=== PATIENT | female | born 1995 | race Caucasian/White ===

== ENCOUNTER 2016-12-08 05:58 | Inpatient (IN) | payer OTHER ==
[2016-12-03 12:45] VITALS: BMI 31.8
--- NOTE | 2016-12-05 12:25 | P.HPOB ---
History of Present Illness H&P Date: 12/05/16 Chief Complaint: Patient is presenting for primary secondary to macrosomia This patient is a pleasant 21-year-old 2 para 0 female estimated date of confinement 12/14/2016 estimated gestational age 39 and one sevenths weeks who presents to labor and delivery requesting primary section secondary to concern for macrosomia. Patient most recently had an ultrasound which showed the weight to be greater than the 90th percentile however the head was measuring "off the scales". I discussed in detail with the patient and her partner about the relative inaccuracy of ultrasounds at this point in her gestation in regards to weight. Patient and her partner both apparently were macrosomic in her mother had a section for similar reasons. I discussed options with the patient including trial of labor, induction at 39 weeks, or primary section. Patient contacted my office and requested primary section. I did discuss the risk and benefits of both with the patient. I feel this is appropriate at this time. Review of Systems Constitutional: Denies chills, Denies fever Ears, nose, mouth and throat: Denies headache, Denies sore throat Cardiovascular: Denies chest pain, Denies shortness of breath Respiratory: Denies cough Gastrointestinal: Reports heartburn Genitourinary: Reports Menstruation: Reports amenorrhea Musculoskeletal: Denies myalgias Integumentary: Denies pruritus, Denies rash Neurological: Denies numbness, Denies weakness Psychiatric: Denies anxiety, Denies depression Endocrine: Denies fatigue, Denies weight change Past Medical History Past Medical History: No Reported History History of Any Multi-Drug Resistant Organisms: None Reported Past Surgical History: Orthopedic Surgery, Tonsillectomy Additional Past Surgical History / Comment(s): left knee, patient had a D&C for a spontaneous . Past Anesthesia/Blood Transfusion Reactions: Motion Sickness, Postoperative Nausea & Vomiting (PONV) Past Psychological History: No Psychological Hx Reported Smoking Status: Never smoker Past Alcohol Use History: None Reported Past Drug Use History: None Reported - Past Family History Mother Family Medical History: Cancer Additional Family Medical History / Comment(s): BREAST CANCER Medications and Allergies Home Medications Medication Instructions Recorded Confirmed Type Pnv with Ca,No.72/Iron/FA 1 each PO DAILY 12/03/16 12/03/16 History [ Plus Tablet] Allergies Allergy/AdvReac Type Severity Reaction Status Date / Time morphine Allergy Rash/Hives Verified 12/03/16 12:33 Exam - OBG Physical Exam Abdomen: bowel sounds normal, no diffuse tenderness, no bruit present, no guarding noted, no hepatomegaly, no splenomegaly, no mass Vulva: both: normal Vagina: normal moisture, no discharge Cervix: Cervix is closed and thick, uneffaced. Uterus: Fundal height is 40 cm. Uterus: enlarged Results blood work shows she is oh positive, rubella immune, RPR nonreactive, HIV nonreactive, hepatitis B negative, Glucola was normal, group B strep was negative, ultrasounds done on the showed estimated weight to be 7 lbs. 12 oz. (greater than the 90th percentile), however per the report the head circumferences "off the charts" and this weight may be unreliable. Assessment and Plan (1) Third trimester Narrative/Plan: This is a pleasant 21-year-old 2 para 0 female 39 and one sevenths weeks with suspected macrosomia, more specifically with a large head with the patient requesting primary section. Patient and I and her family have discussed this in detail including the benefits and risks. We also discussed the relative inaccuracy of ultrasound at this point in her in regard to estimated weight. Certainly she understands this may not be macrosomic, however based on the information that we have and her family history a primary is not unreasonable. She understands the risks of infection, bleeding, possible injury to bowel, bladder, vessels, and/or other organs. She understands the risk of DVT and pulmonary embolism. All the patient's questions are answered and a written consent is obtained. Status: Acute (2) macrosomia during in third trimester Status: Acute (3) Delivery by elective section Status: Acute
[2016-12-08] MEDS ORDERED: CITRIC ACID-SODIUM CITRATE 15 ML CUP PO ONE (06:14)
[2016-12-08] MEDS ORDERED: LACTATED RINGERS 1,000 ML IV SCH (06:14)
[2016-12-08] MEDS ORDERED: LACTATED RINGERS 1,000 ML IV ONE (06:14)
[2016-12-08 06:26] LABS: Basophils % (A) 0 %; CH 31.7; CHCM 34.5; Eosinophils # (A) 0.2 k/uL (0-0.7); Eosinophils % (A) 2 %; HCT 36.4 % (34.0-46.0); HDW 3.16; HGB 12.2 gm/dL (11.4-16.0); Luc # (Auto) 0.26; Luc % (Auto) 3; Lymphocytes # (A) 1.8 k/uL (1.0-4.8); Lymphocytes % (A) 18 %; MCH 31.1 pg (25.0-35.0); MCHC 33.6 g/dL (31.0-37.0); MCV 92.6 fL (80.0-100.0); Mean Platelet Volume 6.9; Monocytes # (A) 0.6 k/uL (0-1.0); Monocytes % (A) 6 %; Neutrophils % (A) 71 %; RBC 3.94 m/uL (3.80-5.40); RDW 14.2 % (11.5-15.5); WBC 9.9 k/uL (3.8-10.6); WBC (Perox) 10.21
[2016-12-08] MEDS ORDERED: ceFAZolin 2 GM in SODIUM CHLORIDE 0.9% 100 ML IVPB ONE (07:15)
[2016-12-08] MEDS ORDERED: KETAMINE 10 MG/ML 20 ML VIAL ONE (07:50)
[2016-12-08] MEDS ORDERED: MORPHINE SULFATE (PF) 0.3 MG/0.3 ML SYR ONE (07:50)
[2016-12-08] MEDS ORDERED: PROPOFOL 10 MG/ML 20 ML VIAL IV ONE (07:50)
[2016-12-08] MEDS ORDERED: fentaNYL (PF) 50 MCG/ML 2 ML AMP ONE (07:50)
[2016-12-08] MEDS ORDERED: OXYTOCIN 10 UNIT/ML 1 ML VIAL IM ONE (07:50)
[2016-12-08] MEDS ORDERED: KETOROLAC 30 MG/ML 1 ML VIAL ONE (07:50)
[2016-12-08] MEDS ORDERED: PHENYLEPHRINE-0.9% NACL SYG 1 MG/10 ML SYRINGE ONE (07:50)
[2016-12-08] MEDS ORDERED: NALBUPHINE 10 MG/ML AMPUL ONE (07:50)
[2016-12-08] MEDS ORDERED: NALBUPHINE 10 MG/ML AMPUL IV PRN (08:34)
[2016-12-08] MEDS ORDERED: diphenhydrAMINE 50 MG/ML 1 ML VIAL IVP PRN (08:34)
[2016-12-08] MEDS ORDERED: ONDANSETRON 4 MG/2 ML VIAL IVP PRN (08:34)
[2016-12-08] MEDS ORDERED: NALOXONE 0.4 MG/ML 1 ML VIAL IV PRN ×2 (08:34→08:40)
[2016-12-08] MEDS ORDERED: METOCLOPRAMIDE 5 MG/ML 2 ML VIAL IVP PRN (08:39)
[2016-12-08] MEDS ORDERED: ACETAMINOPHEN TAB 325 MG TAB PO PRN (08:39)
[2016-12-08] MEDS ORDERED: SIMETHICONE 80 MG CHEWABLE PO PRN (08:39)
[2016-12-08] MEDS ORDERED: diphenhydrAMINE 25 MG CAP PO PRN (08:39)
[2016-12-08] MEDS ORDERED: ZOLPIDEM 5 MG TAB PO PRN (08:39)
--- NOTE | 2016-12-08 08:48 | P.OP ---
Date of Procedure: 12/08/16 Preoperative Diagnosis: #1: 39-6/7 week . #2: Suspected macrosomia. #3: Patient requesting section Postoperative Diagnosis: #1: Same. 2: Nuchal cord 2. Procedure(s) Performed: Primary low transverse section Anesthesia: spinal Surgeon: Laith Aguilera Technical Laboratory Asst #1: Anel Capone Estimated Blood Loss (ml): 800 Pathology: other (Placenta) Condition: stable Disposition: floor Indications for Procedure: Please see dictated H&P for intimate details of this patient's admission. Brief summary this is a pleasant 21-year-old 2 para 0 female 39-6/7 weeks gestation who is admitted to labor and delivery for requested primary section due to concerns for macrosomia. Patient does understand the surgery and risks including risks of infection, bleeding, possible injury to bowel, bladder, vessels, and/or other organs. Patient understands the risk of DVT and pulmonary embolism. All the patient's questions are answered and a written consent is obtained. Operative Findings: This was a vigorous viable female infant Apgars 8 and 9 delivery time is 0815 hrs. Infant was straight occiput posterior presentation with a double nuchal cord. weight was 3620 g. Description of Procedure: This patient has a Garcia catheter placed to straight drain. She subsequently taken to the operating room where spinal anesthetic is administered. Patient's spinal anesthetic is adequate for surgery but is suboptimal. Patient has an abdominal prep and drape. Scalpels then taken and a skin incision is made Pfannenstiel. With this done a second scalpel is taken down the fascia the fascia scored with a knife. The fascial incision extended bilaterally using the Patrick scissors. Fascia is then dissected off the rectus muscles sharply. Rectus muscles are and the peritoneum was identified and entered sharply. Peritoneal incision extended superior and inferior without difficulty. Bladder blade is then placed. The bladder peritoneum was taken sharply off the lower uterine segment. Scalpels then taken and a low transverse uterine incision is then made. Using a hemostat I bluntly entered the uterine cavity and there is loss of a large amount of clear fluid. This incision is extended bluntly. The is found to be occiput posterior presentation. With fundal pressure the 's head is then guided through the incision and delivered. Mouth and nares are bulb suctioned and there is a double nuchal cord which is loose and reduced. With more fundal pressure we then delivery anterior posterior shoulder and rest this infant's body. This is a vigorous viable female infant Apgars are 8 and 9 delivery time was 0815 hours. After delivery of the the umbilical cord is doubly clamped and then cut. It appears to be trivascular. The placenta is then manually extracted intact. Uterus is then externalized. Uterine incision demarcated with Díaz clamps. Uterine incision then closed using 0 Vicryl running locked fashion 2 layers good hemostasis is noted. Bladder peritoneum was then reapproximated using a 3-0 Vicryl. Again good hemostasis is noted excess fluid is removed from the abdomen and pelvis. Uterus placed back into the abdomen. The parietal peritoneum was then closed using 0 Vicryl running fashion. Rectus muscles reapproximated in 0 Vicryl interrupted fashion. Fascia is then closed using 0 PDS. Fascial incision is intact and hemostatic. Subcutaneous tissues and closed using a 3-0 Vicryl. Skin is and closed using dottie. All counts are correct 3. There are no complications. Infant and mother are taken to the birthing suite in satisfactory condition.
[2016-12-08] MEDS: HYDROmorphone PCA 5 MG/25 ML SYRINGE IV PRN ×2 (10:09→21:14)
[2016-12-08] MEDS: diphenhydrAMINE 50 MG/ML 1 ML VIAL IVP PRN ×2 (11:25→17:39)
[2016-12-08] MEDS: LACTATED RINGERS 1,000 ML IV SCH (15:11)
[2016-12-08] MEDS: KETOROLAC 30 MG/ML 1 ML VIAL IVP PRN (20:18)
[2016-12-09] MEDS: SENNOSIDES-DOCUSATE SODIUM 1 EACH TAB PO SCH ×3 (04:35→21:11)
--- NOTE | 2016-12-09 06:22 | P.PNOBGPC ---
Subjective - Subjective Patient reports: Reports appetite normal, Reports voiding normally, Reports pain well controlled, Reports ambulating normally : doing well Objective - Vital Signs Latest vital signs: Vital Signs Temp Pulse Resp BP Pulse Ox 12/09/16 04:00 98.3 F 79 16 108/66 12/09/16 00:00 98.4 F 71 16 115/62 12/08/16 20:00 98.2 F 78 18 122/58 12/08/16 17:05 97 12/08/16 16:00 98.6 F 79 18 107/55 97 12/08/16 15:00 97 12/08/16 13:00 97 12/08/16 11:34 75 20 116/56 98 12/08/16 10:47 71 20 107/52 12/08/16 10:17 71 18 106/52 12/08/16 09:47 75 18 104/51 97 12/08/16 09:34 98 12/08/16 09:32 82 18 105/52 96 12/08/16 09:17 77 18 107/55 96 12/08/16 09:02 78 18 113/59 97 12/08/16 08:47 96.2 F L 77 20 120/55 100 Intake and Output 12/08/16 12/08/16 12/09/16 14:59 22:59 06:59 Intake Total 1000 Output Total 800 2300 Balance -800 -1300 Intake: IV 1000 Lactated Ringers 1,000 ml 1000 @ 125 mls/hr IV .Q8H ALEJANDRO Rx#:[id number] Output: Urine 2300 Uretheral (Garcia) 1300 Estimated Blood Loss 800 Other: # Voids 1 800 Weight 72.575 kg Patient Weight 12/09/16 06:59 Weight 72.575 kg - Exam Lungs: bilateral: normal Chest: Normal S1, Normal S2 Extremities: Present: normal Abdomen: Present: normal appearance, soft. Absent: distention, tenderness Incision: Present: normal, dry, intact Uterus: Present: normal, firm Assessment and Plan (1) Third trimester Narrative/Plan: Post operative day 1. Patient is resting without complaints. Vital signs are stable she's afebrile. Uterus is firm nontender, her incision is intact and dry. CBC is pending at time of this dictation. 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 Current Visit: Yes Status: Acute Code(s): Z33.1 - STATE, INCIDENTAL SNOMED Code(s): 99374472 (2) macrosomia during in third trimester Current Visit: Yes Status: Acute Code(s): O36.63X0 - MATERNAL CARE FOR EXCESS GROWTH, THIRD TRIMESTER, UNSP SNOMED Code(s): 474029068 (3) Delivery by elective section Current Visit: Yes Status: Acute Code(s): O82 - ENCOUNTER FOR DELIVERY WITHOUT INDICATION SNOMED Code(s): 398256153
[2016-12-09] MEDS: KETOROLAC 30 MG/ML 1 ML VIAL IVP PRN (06:42)
[2016-12-09] MEDS: Acetaminophen-Codeine 300-30mg TAB PO PRN ×3 (07:55→18:23)
[2016-12-09 08:37] LABS: Basophils % (A) 0 %; CH 31.4; CHCM 33.4; Eosinophils # (A) 0.1 k/uL (0-0.7); Eosinophils % (A) 1 %; HDW 3.07; HGB 11.9 gm/dL (11.4-16.0); Luc # (Auto) 0.24; Luc % (Auto) 3; Lymphocytes # (A) 1.5 k/uL (1.0-4.8); Lymphocytes % (A) 15 %; MCH 31.2 pg (25.0-35.0); MCHC 32.9 g/dL (31.0-37.0); MCV 94.7 fL (80.0-100.0); Monocytes # (A) 0.5 k/uL (0-1.0); Monocytes % (A) 5 %; Neutrophils # (A) 7.4 k/uL (1.3-7.7); Neutrophils % (A) 76 %; RBC 3.81 m/uL (3.80-5.40); RDW 14.2 % (11.5-15.5); WBC 9.7 k/uL (3.8-10.6); WBC (Perox) 10.53
[2016-12-09] MEDS: IBUPROFEN 600 MG TAB PO PRN ×3 (10:10→22:37)
--- NOTE | 2016-12-09 11:30 | P.PN ---
Progress Note - Text Date:[12/09] Time:[633] Patient is status post []. Patient seen this morning with VAS score of [10]. c/o of pruritus, c/o nausea/vomiting. Patient treated with Ultram for pain control, doing better today
[2016-12-09] MEDS: LACTATED RINGERS 1,000 ML IV SCH ×2 (20:38→20:39)
[2016-12-09] MEDS: OXYTOCIN 30 UNITS/500 ML NS 30 UNIT in SALINE 1 500ML.BAG IV SCH (20:40)
[2016-12-10] MEDS: Acetaminophen-Codeine 300-30mg TAB PO PRN ×5 (00:01→20:18)
--- NOTE | 2016-12-10 06:11 | P.PNOBGPC ---
Subjective - Subjective Patient reports: Reports appetite normal, Reports voiding normally, Reports pain well controlled, Reports ambulating normally : doing well Objective - Vital Signs Latest vital signs: Vital Signs Temp Pulse Resp BP Pulse Ox 12/10/16 00:00 98.5 F 68 18 101/61 97 12/09/16 16:00 98.4 F 73 16 115/64 12/09/16 08:00 99.0 F 90 16 125/71 - Exam Lungs: bilateral: normal Chest: Normal S1, Normal S2 Extremities: Present: normal Abdomen: Present: normal appearance, soft. Absent: distention, tenderness Incision: Present: normal, dry, intact Uterus: Present: normal, firm Assessment and Plan (1) Third trimester Narrative/Plan: Postoperative day #2. Patient is resting without complaints. Vital signs are stable and she is afebrile. Uterus is firm nontender and her incision is intact and dry. My impression this is a normal course. Plan is continue routine postoperative care most likely discharge home tomorrow. Current Visit: Yes Status: Acute Code(s): Z33.1 - STATE, INCIDENTAL SNOMED Code(s): 84383467 (2) macrosomia during in third trimester Current Visit: Yes Status: Acute Code(s): O36.63X0 - MATERNAL CARE FOR EXCESS GROWTH, THIRD TRIMESTER, UNSP SNOMED Code(s): 930502013 (3) Delivery by elective section Current Visit: Yes Status: Acute Code(s): O82 - ENCOUNTER FOR DELIVERY WITHOUT INDICATION SNOMED Code(s): 987906302
[2016-12-10] MEDS: SENNOSIDES-DOCUSATE SODIUM 1 EACH TAB PO SCH ×2 (08:59→20:17)
[2016-12-10] MEDS: IBUPROFEN 600 MG TAB PO PRN ×3 (09:00→22:40)
[2016-12-10] MEDS ORDERED: LACTATED RINGERS 1,000 ML IV SCH (17:00)
[2016-12-10] MEDS ORDERED: IV FLUID CONTINUATION 1,000 ML IV ONE ×2 (17:08)
--- NOTE | 2016-12-10 17:21 | P.PN ---
Progress Note - Text Anesthesia 1715. I was asked to see the patient this afternoon because of symptoms suggesting a post dural puncture headache. Patient had a section under spinal anesthesia 2 days ago, yesterday she developed some nuchal irritation, and today symptoms have progressed to those of a full-blown post dural puncture headache including nuchal rigidity, marked postural component, and photophobia requiring that the room lights be off. Patient is currently breast-feeding and the has limited time off so they have decided to go ahead with an epidural blood patch which I will perform this afternoon.
--- NOTE | 2016-12-10 17:54 | P.PCN ---
Date of Procedure: 12/10/16 (Begin 1726 End 1738) Preoperative Diagnosis: Post dural puncture headache Postoperative Diagnosis: Same Procedure(s) Performed: Epidural blood patch Anesthesia: local Surgeon: Laith Mari Estimated Blood Loss (ml): 0.01 IV fluids (ml): 150 Pathology: none sent Condition: stable Disposition: floor Indications for Procedure: Post dural puncture headache Operative Findings: Evidence of LP puncture site at L34 Description of Procedure: With the patient seated crosstable on the stretcher the skin over the L34 interspace and surrounding area was thoroughly prepped with a chlorhexidine prep sponge. Approximately 1/10 of a cc of 1% plain lidocaine was used to raise a skin wheal over the L3 4 interspace in the midline. A 20-gauge Touhy needle was then introduced through the skin wheal into the interspinous ligament. The epidural space was then entered using a loss of resistance technique and a pulser style syringe lubricated with normal saline. At this point 20 mL of sterilely drawn autologous blood was obtained from the patient and injected through the Touhy needle with almost complete resolution of the patient's symptoms. The patient tolerated the procedure without complaint and is discharged back to her room on mother baby.
[2016-12-10] MEDS: LACTATED RINGERS 1,000 ML IV SCH ×2 (18:14→20:21)
[2016-12-11] MEDS: LACTATED RINGERS 1,000 ML IV SCH ×3 (02:19→05:10)
[2016-12-11] MEDS: Acetaminophen-Codeine 300-30mg TAB PO PRN ×2 (05:08→16:18)
--- NOTE | 2016-12-11 05:56 | P.PNOBGPC ---
Subjective - Subjective Patient reports: Reports appetite normal, Reports voiding normally, Reports pain well controlled, Reports ambulating normally : doing well Objective - Vital Signs Latest vital signs: Vital Signs Temp Pulse Pulse Resp BP BP Pulse Ox 12/11/16 00:00 98 F 68 14 118/55 97 12/10/16 21:00 97.8 F 87 16 128/77 12/10/16 17:55 66 16 111/58 96 12/10/16 17:40 59 L 16 116/59 95 12/10/16 16:00 97.0 F L 78 18 115/59 12/10/16 08:00 97.8 F 85 16 115/66 Intake and Output 12/10/16 12/10/16 12/11/16 14:59 22:59 06:59 Intake Total 350 Balance 350 Intake: IV 350 Other: Voiding Method Toilet Toilet - Exam Lungs: bilateral: normal Chest: Normal S1, Normal S2 Extremities: Present: normal Abdomen: Present: normal appearance, soft. Absent: distention, tenderness Incision: Present: normal, dry, intact Uterus: Present: normal, firm Assessment and Plan (1) Third trimester Narrative/Plan: day #3. Patient had developed a headache history afternoon and anesthesia evaluated and felt was spinal in nature. Patient was taken to the operating room and had a epidural blood patch placed which did resolve her headache. She is resting this morning without new complaints. She does asked to stay today to concerns for recurrence of her headache. Vital signs are stable she is afebrile. Uterus is firm nontender and her incision is intact and dry. My impression is this is a normal postoperative course with a spinal headache which is now resolved status post blood patch. Plan today is continue routine postoperative care most likely discharge home tomorrow is patient changes her mind. Current Visit: Yes Status: Acute Code(s): Z33.1 - STATE, INCIDENTAL SNOMED Code(s): 37024491 (2) macrosomia during in third trimester Current Visit: Yes Status: Acute Code(s): O36.63X0 - MATERNAL CARE FOR EXCESS GROWTH, THIRD TRIMESTER, UNSP SNOMED Code(s): 176533434 (3) Delivery by elective section Current Visit: Yes Status: Acute Code(s): O82 - ENCOUNTER FOR DELIVERY WITHOUT INDICATION SNOMED Code(s): 689379932
--- NOTE | 2016-12-11 08:00 | P.PN ---
Progress Note - Text 0650 anesthesia. Vishnu lee is status post epidural blood patch for os dural puncture headache secondary to a spinal anesthetic for section on Thursday. She reports no headache this morning.
[2016-12-11] MEDS: SENNOSIDES-DOCUSATE SODIUM 1 EACH TAB PO SCH ×2 (09:21→19:53)
[2016-12-11] MEDS: IBUPROFEN 600 MG TAB PO PRN ×2 (09:21→19:07)
[2016-12-12] MEDS: Acetaminophen-Codeine 300-30mg TAB PO PRN ×2 (00:47→05:34)
[2016-12-12] MEDS: LACTATED RINGERS 1,000 ML IV SCH (02:57)
--- NOTE | 2016-12-12 06:35 | P.PNOBGPC ---
Subjective - Subjective Patient reports: Reports appetite normal, Reports voiding normally, Reports pain well controlled, Reports ambulating normally : doing well Objective - Vital Signs Latest vital signs: Vital Signs Temp Pulse Resp BP 12/12/16 00:00 98.5 F 58 L 16 105/60 12/11/16 16:00 98.7 F 89 16 125/67 12/11/16 08:00 98.2 F 80 18 112/63 - Exam Lungs: bilateral: normal Chest: Normal S1, Normal S2 Extremities: Present: normal Abdomen: Present: normal appearance, soft. Absent: distention, tenderness Incision: Present: normal, dry, intact Uterus: Present: normal, firm Assessment and Plan (1) Third trimester Narrative/Plan: Postoperative day #4. Patient is resting without complaints, her spinal headache has resolved since the blood patch. Vital signs are stable she is afebrile. Uterus is firm nontender she's having normal lochia. Her incision is intact and dry. My impression is normal postoperative course. Plan is to continue routine postoperative care discharge home today. Current Visit: Yes Status: Acute Code(s): Z33.1 - STATE, INCIDENTAL SNOMED Code(s): 48253837 (2) macrosomia during in third trimester Current Visit: Yes Status: Acute Code(s): O36.63X0 - MATERNAL CARE FOR EXCESS GROWTH, THIRD TRIMESTER, UNSP SNOMED Code(s): 356611378 (3) Delivery by elective section Current Visit: Yes Status: Acute Code(s): O82 - ENCOUNTER FOR DELIVERY WITHOUT INDICATION SNOMED Code(s): 311347139
--- NOTE | 2016-12-12 06:38 | P.DS ---
Providers Date of admission: 12/08/16 05:58 Expected date of discharge: 12/12/16 Attending physician: Laith Aguilera Primary care physician: Stated None - Discharge Diagnosis(es) (1) Third trimester Current Visit: Yes Status: Acute (2) macrosomia during in third trimester Current Visit: Yes Status: Acute (3) Delivery by elective section Current Visit: Yes Status: Acute Hospital Course: Please see dictated H&P for intimate details of this patient's admission. Brief summary is a pleasant 21-year-old 2 para 0 female admitted for primary section for large for gestational age. Patient is admitted she has primary low transverse section for viable male infant. Please see dictated operative note. Postoperatively she does well until approximate postoperative 2 she develops a spinal headache which is resolved after a blood patch. By postoperative 4 patient's felt be stable for discharge home follow up with me in 1 week. Procedures: Primary low transverse section. Blood patch. Patient Condition at Discharge: Good Plan - Discharge Summary New Discharge Prescriptions: Acetaminophen-Codeine 300-30mg [Tylenol w/codeine #3] 1 - 2 each PO Q4HR PRN # 40 tab PRN Reason: Mild-Moderate Pain Ibuprofen [Motrin] 600 mg PO Q6HR PRN #40 tab PRN Reason: Mild Pain Or Fever >= 100.5 Discharge Medication List Pnv with Ca,No.72/Iron/FA [ Plus Tablet] 1 each PO DAILY 12/03/16 [ History] Acetaminophen-Codeine 300-30mg [Tylenol w/codeine #3] 1 - 2 each PO Q4HR PRN # 40 tab 12/10/16 [Rx] Ibuprofen [Motrin] 600 mg PO Q6HR PRN #40 tab 12/10/16 [Rx] Follow up Appointment(s)/Referral(s): Laith Aguilera MD [STAFF PHYSICIAN] - 1 Week (Patient also has a appointment on January 19 at 1:45 PM.) Patient Instructions/Handouts: (DC) Activity/Diet/Wound Care/Special Instructions: No heavy lifting or strenuous activities for 6 weeks. No intercourse reining per vagina for 6 weeks. Please call if any fever, chills, excessive vaginal bleeding, and/or abdominal pain. Discharge Disposition: HOME SELF-CARE
[2016-12-12] MEDS: SENNOSIDES-DOCUSATE SODIUM 1 EACH TAB PO SCH (08:25)
[2016-12-12] MEDS: IBUPROFEN 600 MG TAB PO PRN (08:25)
[2016-12-12 08:50] VITALS: BP 114/54; PULSE 68; RESP 17; TEMP 97.5
== END 2016-12-12 12:00 | disposition home or self-care (01) | DRG 766 ==
LOC: 4FBP 05:58
PROVIDERS: ADMIT Obstetrics & Gynecology; ATTEND Obstetrics & Gynecology
PROC: 10D00Z1 Extraction of Products of Conception, Low, Open Approach (ICD-10-PCS; principal; 2016-12-08 08:00)
PROC: 3E0R3GC Introduction of Other Therapeutic Substance into Spinal Canal, Percutaneous Approach (ICD-10-PCS; 2016-12-10)
DX: O36.63X0 Maternal care for excessive fetal growth, third trimester, not applicable or unspecified (principal); O69.81X0 Labor and delivery complicated by cord around neck, without compression, not applicable or unspecified; Z37.0 Single live birth; Z3A.39 39 weeks gestation of pregnancy; L29.9 Pruritus, unspecified; G97.1 Other reaction to spinal and lumbar puncture; Y84.4 Aspiration of fluid as the cause of abnormal reaction of the patient, or of later complication, without mention of misadventure at the time of the procedure
CPT/HCPCS: 62273; 85025; 86850; 86900; 86901; 88307

== ENCOUNTER → 2018-04-14 | Outpatient (CLI) | payer OTHER ==
--- NOTE | 2018-04-14 12:03 | US ---
EXAMINATION TYPE: Transabdominal DATE OF EXAM: 02/16/18 COMPARISON: NONE CLINICAL HISTORY: O76 abnormal absent heart beats. EXAM PERFORMED: Transvaginal (TV) and Transabdominal (TA) EXAM MEASUREMENTS: GESTATIONAL AGE / DATING Physician Established: Not yet established Dates by LMP: (10 weeks/2 days) EDC: 11/08/2018 Dates by First Scan: No previous this is first scan Dates by Current Scan for: No pole visualized MATERNAL ANATOMY Uterus: 9.1 x 6.7 x 7.9 cm Right Ovary: 3.0 x 1.7 x 1.5 cm Left Ovary: 2.2 x 0.9 x 1.2 cm Post CDS / Adnexa: Tiny amount of free fluid visualized Presence of free fluid: Trace amount Presence of corpus luteal cyst: Yes, right ovary measuring 2.2 x 1.4 x 1.2 cm Presence of subchorionic bleed: Yes, measuring 3.3 x 2.6 x 4.0 cm GESTATION / SURVEY MSD: 2.4 cm (7 weeks/0 days) Yolk Sac (normal less than 6mm): No yolk sac visualized IUP: No pole or yolk sac visualized on today's exam Date of LMP: 02/01/2018 Beta HcG (if available): Not available at this time There is an anechoic area visualized measuring 2.3 x 1.9 x 2.9 cm with no yolk sac or pole visu alized. IMPRESSION: 1. Findings could be related to a blighted ovum. The mean sac diameter would suggest a 7 week gestati on. pole and cardiac activity are typically identified before 7 week gestational age. No pole or yolk sac is evident. Ectopic is also within the differential. Only a small amount o f free fluid is present. Small subchorionic hemorrhage appears to be present. 2. Bilateral ovarian cysts.
== END | disposition home or self-care (01) ==
LOC: RADUSWWP 11:04
PROVIDERS: ATTEND Obstetrics & Gynecology
DX: O34.81 Maternal care for other abnormalities of pelvic organs, first trimester (principal); N83.202 Unspecified ovarian cyst, left side; N83.201 Unspecified ovarian cyst, right side; Z3A.00 Weeks of gestation of pregnancy not specified
CPT/HCPCS: 36415; 76801; 76817; 84702

== ENCOUNTER 2018-04-22 16:11 | Emergency (ER) | payer OTHER ==
[2018-04-22 16:31] VITALS: RESP 16
[2018-04-22] MEDS ORDERED: ONDANSETRON 4 MG/2 ML VIAL IVP STA (16:48)
[2018-04-22] MEDS ORDERED: KETOROLAC 30 MG/ML 1 ML VIAL IVP STA (16:48)
[2018-04-22 17:16] LABS: Basophils % (A) 0 %; Eosinophils # (A) 0.1 k/uL (0-0.7); Eosinophils % (A) 1 %; HCT 39.9 % (34.0-46.0); Lymphocytes # (A) 1.8 k/uL (1.0-4.8); Lymphocytes % (A) 14 %; MCH 30.9 pg (25.0-35.0); MCV 88.1 fL (80.0-100.0); Mean Platelet Volume 6.8; Monocytes # (A) 0.7 k/uL (0-1.0); Monocytes % (A) 5 %; Neutrophils # (A) 10.8 k/uL (1.3-7.7); Neutrophils % (A) 79 %; Platelet Count 311 k/uL (150-450); RBC 4.53 m/uL (3.80-5.40); RDW 12.4 % (11.5-15.5); WBC 13.6 k/uL (3.8-10.6)
[2018-04-22 17:23] LABS: INR 1.1 (<1.2); Partial Thromboplastin Time 22.4 sec (22.0-30.0); Prothrombin Time 10.6 sec (9.0-12.0)
[2018-04-22 17:26] LABS: ALT 26 U/L (9-52); AST 22 U/L (14-36); Albumin 4.7 g/dL (3.5-5.0); Alkaline Phosphatase 44 U/L (38-126); Anion Gap 16 mmol/L; Blood Urea Nitrogen 16 mg/dL (7-17); Calcium 10.1 mg/dL (8.4-10.2); Carbon Dioxide 18 mmol/L (22-30); Chloride 106 mmol/L (98-107); Glucose 96 mg/dL (74-99); Potassium 4.1 mmol/L (3.5-5.1); Sodium 140 mmol/L (137-145); Total Bilirubin 1.5 mg/dL (0.2-1.3); Total Protein 7.3 g/dL (6.3-8.2)
[2018-04-22 17:42] LABS: HCG,Quantitative Serum 1385.9 mIU/mL
[2018-04-22] MEDS ORDERED: HYDROmorphone 0.5 MG/0.5 ML SYRINGE IVP STA (17:55)
--- NOTE | 2018-04-22 18:35 | ED ---
Abdominal Pain HPI - General Chief Complaint: Abdominal Pain Stated Complaint: Abd Pain/Miscarriage Time Seen by Provider: 04/22/18 16:33 Source: patient, RN notes reviewed Mode of arrival: wheelchair Limitations: no limitations - History of Present Illness Initial Comments: 22-year-old female presented emergency department with chief complaint of abdominal pain. Patient states that she is having a miscarriage. Patient had another ultrasound confirmed miscarriages showed blowing of the gestational sac. Patient was scheduled see her QUALITY ANALYST/TECHNICAL WRITER Dr. Aguilera though he had emergency and had to be. They told her that there is nothing much the past in the office. Patient complains of laurie-like pain and cramping of her lower abdomen. She states that she is having bleeding which was more significant but is not causing symptoms at this time. She states she does not feel lightheaded or dizzy. She does admit to some nausea secondary to pain. - Related Data Home Medications Medication Instructions Recorded Confirmed Acetaminophen [Tylenol] 1,000 mg PO TID PRN 04/22/18 04/22/18 Previous Rx's Medication Instructions Recorded Hydrocodone/Acetaminophen [[place] 1 tab PO Q6HR PRN #12 tab 04/22/18 5-325] Ibuprofen [Motrin] 600 mg PO Q8HR PRN #30 tab 04/22/18 Allergies Allergy/AdvReac Type Severity Reaction Status Date / Time morphine Allergy Itching Verified 04/22/18 17:11 Review of Systems ROS Statement: Those systems with pertinent positive or pertinent negative responses have been documented in the HPI. ROS Other: All systems not noted in ROS Statement are negative. Past Medical History Past Medical History: No Reported History History of Any Multi-Drug Resistant Organisms: None Reported Past Surgical History: Orthopedic Surgery, Tonsillectomy Additional Past Surgical History / Comment(s): left knee, patient had a D&C for a spontaneous . Past Anesthesia/Blood Transfusion Reactions: Motion Sickness, Postoperative Nausea & Vomiting (PONV) Past Psychological History: No Psychological Hx Reported Smoking Status: Never smoker Past Alcohol Use History: None Reported Past Drug Use History: None Reported - Past Family History Mother Family Medical History: Cancer Additional Family Medical History / Comment(s): BREAST CANCER General Exam Limitations: no limitations General appearance: alert, in no apparent distress Head exam: Present: atraumatic, normocephalic, normal inspection Eye exam: Present: normal appearance, PERRL, EOMI. Absent: scleral icterus, conjunctival injection, periorbital swelling ENT exam: Present: normal exam, normal oropharynx, mucous membranes moist Neck exam: Present: normal inspection. Absent: tenderness, meningismus, lymphadenopathy Respiratory exam: Present: normal lung sounds bilaterally. Absent: respiratory distress, wheezes, rales, rhonchi, stridor Cardiovascular Exam: Present: regular rate, normal rhythm, normal heart sounds. Absent: systolic murmur, diastolic murmur, rubs, gallop, clicks GI/Abdominal exam: Present: soft, tenderness, normal bowel sounds. Absent: distended, guarding, rebound, rigid Neurological exam: Present: alert, oriented X3, CN II-XII intact Course Vital Signs 04/22/18 16:28 Temperature 98.1 F Pulse Rate 75 Respiratory 16 Rate Blood Pressure 103/62 O2 Sat by Pulse 100 Oximetry Medical Decision Making - Medical Decision Making 22-year-old female presents from for abdominal pain, current miscarriage. Patient's bleeding is secondary have her than her normal mental cycle states it feels that slowing down. Patient's pain is improved after pain medication here. Patient we discharged with pain medication and follow-up with QUAL[facility] ANALYST/TECHNICAL WRITER. Return parameters were discussed. - Lab Data Result diagrams: 04/22/18 17:06 04/22/18 17:06 Lab Results 04/22/18 04/22/18 04/22/18 Range/Units 17:06 17:06 17:06 WBC 13.6 H (3.8-10.6) k/uL RBC 4.53 (3.80-5.40) m/uL Hgb 14.0 (11.4-16.0) gm/dL Hct 39.9 (34.0-46.0) % MCV 88.1 (80.0-100.0) fL MCH 30.9 (25.0-35.0) pg MCHC 35.0 (31.0-37.0) g/dL RDW 12.4 (11.5-15.5) % Plt Count 311 (150-450) k/uL Neutrophils % 79 % Lymphocytes % 14 % Monocytes % 5 % Eosinophils % 1 % Basophils % 0 % Neutrophils # 10.8 H (1.3-7.7) k/uL Lymphocytes # 1.8 (1.0-4.8) k/uL Monocytes # 0.7 (0-1.0) k/uL Eosinophils # 0.1 (0-0.7) k/uL Basophils # 0.0 (0-0.2) k/uL PT 10.6 (9.0-12.0) sec INR 1.1 (<1.2) APTT 22.4 (22.0-30.0) sec Sodium 140 (137-145) mmol/L Potassium 4.1 (3.5-5.1) mmol/L Chloride 106 (98-107) mmol/L Carbon Dioxide 18 L (22-30) mmol/L Anion Gap 16 mmol/L BUN 16 (7-17) mg/dL Creatinine 0.60 (0.52-1.04) mg/dL Est GFR (CKD-EPI)AfAm >90 (>60 ml/min/1.73 sqM) Est GFR (CKD-EPI)NonAf >90 (>60 ml/min/1.73 sqM) Glucose 96 (74-99) mg/dL Calcium 10.1 (8.4-10.2) mg/dL Total Bilirubin 1.5 H (0.2-1.3) mg/dL AST 22 (14-36) U/L ALT 26 (9-52) U/L Alkaline Phosphatase 44 (38-126) U/L Total Protein 7.3 (6.3-8.2) g/dL Albumin 4.7 (3.5-5.0) g/dL HCG, Quant 1385.9 mIU/mL Disposition Clinical Impression: Miscarriage, Abdominal pain Disposition: HOME SELF-CARE Condition: Stable Instructions: Miscarriage (ED) Additional Instructions: Please return to the Emergency Department if symptoms worsen or any other concerns. Prescriptions: Hydrocodone/Acetaminophen [[place] 5-325] 1 tab PO Q6HR PRN #12 tab PRN Reason: Pain Ibuprofen [Motrin] 600 mg PO Q8HR PRN #30 tab PRN Reason: Pain Is patient prescribed a controlled substance at d/c from ED?: Yes When asked, does pt state using other controlled substances?: No If prescribed controlled substance>3 days was MAPS reviewed?: Prescribed <3 Days If opioid is for acute pain is fill amount 7 days or less?: Yes If Rx opioid, was Start Talking consent form obtained?: Yes Referrals: None,Stated [Primary Care Provider] - 1-2 days Laith Aguilera MD [STAFF PHYSICIAN] - 1-2 days Time of Disposition: 18:44
[2018-04-22 18:56] VITALS: BP 107/53; PULSE 69; TEMP 98.5
== END 2018-04-22 19:03 | disposition home or self-care (01) ==
LOC: EC 16:11
DX: O03.9 Complete or unspecified spontaneous abortion without complication (principal); O99.89 Other specified diseases and conditions complicating pregnancy, childbirth and the puerperium; R11.0 Nausea; Z3A.00 Weeks of gestation of pregnancy not specified; Z88.5 Allergy status to narcotic agent
CPT/HCPCS: 99284; 96374; 96375 ×2; 36415; 80053; 85025; 85610; 85730; 84702; J2405; J1885; J1170

== ENCOUNTER → 2018-04-22 | Outpatient (CLI) | payer OTHER ==
--- NOTE | 2018-04-22 15:13 | US ---
EXAMINATION TYPE: Transabdominal DATE OF EXAM: 02/16/18 COMPARISON: 04/14/2018 CLINICAL HISTORY: Z36 Follow to previous abnormal exam. Patient started bleeding April 20, cramping, pa ssing clots EXAM PERFORMED: OBTA EXAM MEASUREMENTS: GESTATIONAL AGE / DATING Physician Established: (11weeks/2 days) EDC: 11/08/2018 Dates by Current Scan for: * EDC: N/A MATERNAL ANATOMY Uterus: 11.0 x 6.4 x 5.7cm Right Ovary: 2.6 x 2.1 x 1.4cm Left Ovary: 2.6 x 1.8 x 1.4cm Post CDS / Adnexa: wnl Presence of free fluid: no Presence of corpus luteal cyst: not seen Presence of subchorionic bleed: no GESTATION / SURVEY Empty gestational sac seen within the lower uterine segment, this has progressed closer to cervix sin ce previous exam *possible septated UT, TRV endometrium showed 2 distinct horns at superior fundus Date of LMP: 02/01/2018 Beta HcG (if available): not available IMPRESSION: 1. Descent of the gestational sac without visualization of a yolk sac or pole into the lower ce rvical region of the uterus from the prior examination. Impending spontaneous may be present . 2. Septated uterus with 2 endometrial canals at the fundus of the uterus
== END | disposition home or self-care (01) ==
LOC: RADUSWWP 14:12
PROVIDERS: ATTEND Obstetrics & Gynecology
DX: O34.01 Maternal care for unspecified congenital malformation of uterus, first trimester (principal); Q51.2 Other doubling of uterus; Z3A.11 11 weeks gestation of pregnancy
CPT/HCPCS: 76801

== ENCOUNTER → 2019-01-20 | Outpatient (CLI) | payer OTHER ==
--- NOTE | 2019-01-20 15:51 | US ---
EXAMINATION TYPE: Transabdominal DATE OF EXAM: 01/20/2019 3:19 PM COMPARISON: NONE CLINICAL HISTORY: Z36 CONFIRM DATES. EXAM PERFORMED: Transabdominal (TA) EXAM MEASUREMENTS: GESTATIONAL AGE / DATING Physician Established: Not yet established Dates by LMP: (8 weeks/3 days) EDC: 08/29/19 Dates by First Scan: No previous this is first scan Dates by Current Scan for: (8 weeks/3 days) EDC: 08/29/19 MATERNAL ANATOMY Uterus: 8.2 x 7.0 x 8.4cm Right Ovary: 3.3 x 2.5 x 2.4cm Left Ovary: 1.6 x 1.3 x 1.5cm Post CDS / Adnexa: wnl Presence of free fluid: no GESTATION / SURVEY CRL: 1.9 (8 weeks/3 days) Yolk Sac (normal less than 6mm): 3mm Heart Rate: 178 bpm Rhythm: Normal IUP: Live IUP Date of LMP: 11/22/18 Beta HcG (if available): IMPRESSION: Single live intrauterine with a calculated sonographic age of 8 weeks and 3 days and estima ulisses date of delivery of 08/29/2019, concordant with menstrual age.
[2019-01-20 16:06] LABS: HCT 38.7 % (34.0-46.0); HGB 13.4 gm/dL (11.4-16.0); MCH 31.9 pg (25.0-35.0); MCHC 34.7 g/dL (31.0-37.0); MCV 91.7 fL (80.0-100.0); Mean Platelet Volume 6.9; Platelet Count 297 k/uL (150-450); RBC 4.22 m/uL (3.80-5.40); WBC 10.4 k/uL (3.8-10.6)
[2019-01-20 16:36] LABS: Glucose 81 mg/dL (74-99)
== END ==
LOC: RADUSWWP 14:58
PROVIDERS: ATTEND Obstetrics & Gynecology
DX: Z36.89 Encounter for other specified antenatal screening (principal); Z34.81 Encounter for supervision of other normal pregnancy, first trimester; Z3A.08 8 weeks gestation of pregnancy
CPT/HCPCS: 36415; 76801; 82565; 82947; 85027; 86762; 86780; 86850; 86900; 86901; 87340